=== PATIENT | male | born 1945 | race Caucasian/White ===

== ENCOUNTER → 2016-10-10 | Day surgery (SDC) | payer MEDICARE, OTHER ==
[~2016-10-10] MED LIST: ACETYLCYSTEINE 20% 6,000 MG/30 ML ORAL SOLN VIAL ONE; CALC625 PO; CENTCHW3 PO; CYAN2500 PO; FENO145T2 PO; FLAXOIL4 PO; LACTATED RINGER'S 1000 ML INJ 1,000 ML ONE; NIAC500T34 PO; OMEG100010 PO; PROPOFOL 200 MG/20 ML AMP IV ONE; SAW1000C PO; STERILE WATER FOR INJ 20 ML VIAL ONE; TAMS0.4C67 PO; TRIA37.512 PO
== END | disposition home or self-care (01) ==
LOC: ESDC 08:48
PROVIDERS: ATTEND Internal Medicine Gastroenterology
DX: K22.70 Barrett's esophagus without dysplasia (principal)
CPT/HCPCS: 00740; 43270; J3010; J7120

== ENCOUNTER → 2017-01-02 | Day surgery (SDC) | payer MEDICARE, OTHER ==
[~2017-01-02] MED LIST changes: -PROPOFOL 200 MG/20 ML AMP IV ONE; +PROPOFOL 500 MG/50 ML BTL IV ONE
--- NOTE | 2017-01-02 08:53 | GIPROC ---
[facility] [address] [facility], [address] EGD WITH HALO PROCEDURE REPORT EXAM DATE: 01/02/2017 PATIENT NAME: Barry Ha MR #: [id number] BIRTHDATE: 1945 ORDER #: [id number] ATTENDING: Joi Maldonado MD FOOD PRESERVATION SCIENTIST: STATUS: outpatient INDICATIONS: The patient is a 71 yr old male here for an EGD with HALO90 ablation due to Peres's esophagus , dysphagia PROCEDURE PERFORMED: Esophagoscopy with Halo 90 EGD with biopsy and dilatation with Savary dilators MEDICATIONS: None and Per Anesthesia. TOPICAL ANESTHETIC: none CONSENT: The patient understands the risks and benefits of the procedure and understands that these risks include, but are not limited to: sedation, allergic reaction, infection, perforation and/or bleeding. Alternative means of evaluation and treatment include, among others: physical exam, x-rays, and/or surgical intervention. The patient elects to proceed with this endoscopic procedure. DESCRIPTION OF PROCEDURE: checked for proper function. Hand hygiene and appropriate measures for infection prevention was taken. After the risks, benefits and alternatives of the procedure were thoroughly explained, Informed consent was verified, confirmed and timeout was successfully executed by the treatment team. The EG-2990i ([id number]) endoscope was introduced through the mouth and advanced to the Em -duodenum second portion. The mucosa was examined both on insertion and withdrawal. Retroflexion was performed in the gastric fundus. The area of the Peres's esophagus was mapped. The esophagus was irrigated with 1% N-acetylcysteine (Mucomyst) to clear the mucous layer from the lining of the esophagus and to facilitate energy delivery. The gastroscope was removed and HALO-90 ablation device was attached to the tip of the gastroscope, which was re-introduced into the esophagus under direct visualization. HALO-90 device was directed to the targeted area of Peres's esophagus. With the targeted area in 12 o' clock position with the endoscopic view, radiofrequency energy was applied twice at the same site (300 W and 12 J/cm2). The ablated zone was scrapped with the tip of the HALO-90 device to remove the coagulative debris. The gastroscope was removed and the HALO-90 device was cleaned. The gastroscope was reintroduced with the HALO-90 device and the targeted areas were treated with radiofrequency energy two more times. (Total of four application in one region). The gastroscope was inserted into the stomach, the gastric contents were suctioned and the ablation zone was inspected. Esophagoscopy confirmed complete ablation of all intestinal metaplasia. Rest of the findings are given below. The patient tolerated the procedure well and was sent to Recovery in stable condition. gastritis antrum-biopsy Peres's esophagus distal esophagus-biopsy hiatal hernia spasm distal esophagus -s/p dilatation using Savary dialator 16 ADVERSE EVENTS: There were no complications. IMPRESSIONS: gastritis antrum-biopsy Peres's distal esopphagus -biopsy esophaegal spasm distal esophagus -s/pdilatation using Savary dilator 16 hiatal hernia RECOMMENDATIONS: 1. Avoid aspirin or non-steroidal or anti-inflammatory medications for 7 days. 2. Full liquid diet for 24 hours then advance to soft diet for 7 days. REPEAT EXAM: EGD pending biopsy results , EGD/BARRX 2 month 3.continue ppi 4.fu biopsy 5.fu office Joi Maldonado MD eSigned: Joi Maldonado MD 01/02/2017 8:53 AM cc: Tracy Blood [facility] Flor PATIENT NAME: Barry Ha MR#: [id number]
== END | disposition home or self-care (01) ==
LOC: ESDC 06:44
PROVIDERS: ATTEND Internal Medicine Gastroenterology
DX: K22.70 Barrett's esophagus without dysplasia (principal); K29.70 Gastritis, unspecified, without bleeding; K44.9 Diaphragmatic hernia without obstruction or gangrene; K22.4 Dyskinesia of esophagus
CPT/HCPCS: 00740; 43229; 88305; J3010; J7120

== ENCOUNTER 2017-01-26 10:56 | Emergency (ER) | payer MEDICARE, OTHER ==
[~2017-01-26] VITALS: Ht 180.3 cm; Wt 113.0 kg
[~2017-01-26 10:56] MED LIST changes: -ACETYLCYSTEINE 20% 6,000 MG/30 ML ORAL SOLN VIAL ONE; -LACTATED RINGER'S 1000 ML INJ 1,000 ML ONE; -PROPOFOL 500 MG/50 ML BTL IV ONE; -STERILE WATER FOR INJ 20 ML VIAL ONE
[2017-01-26 10:57] VITALS: BP 149/74; PULSE 70; RESP 18; TEMP 98.4; O2SAT 98
[2017-01-26] MEDS ORDERED: SODIUM CHLORIDE 0.9% FLUSH 10 ML FLUSH IV FLUSH PRN (11:30)
[2017-01-26] MEDS ORDERED: ONDANSETRON HCL 4 MG/2 ML VIAL IVP ONE (11:30)
[2017-01-26] MEDS ORDERED: MORPHINE SULFATE 4 MG/ML INJ IV PUSH ONE ×2 (11:30→13:45)
--- NOTE | 2017-01-26 11:32 | PD ---
HPI Chief Complaint: Abdominal Pain Time Seen by Provider: 11:08 Travel History International Travel<30 days: No Contact w/Intl Traveler<30days: No Traveled to known affect area: No History of Present Illness HPI 71yo M with PMH of nephrolithiasis, duodenol ulcer, barretts esophagitis presents to the ED with c/o right sided abdominal pain since yesterday. States it is intermittent, squeezing type pain, and nonradiating. It feels worst about 20 minuts after eating. +Nausea. Took acetaminophen if minimal relieve. Denies any fever, chest pain, sob, vomiting, dysuria, hematuria, diarrhea, back pain, focal weakness or numbness. Pt had normal bowel movement today. Had normal colonoscopy 6-7 years ago. Follows with GI Dr. Maldonado. [facility] Past Medical History Arthritis: No Asthma: No Autoimmune Disease: No Blood Disorders: No Anxiety: No Depression: No Heart Rhythm Problems: No Cancer: No Cardiovascular Problems: No High Cholesterol: Yes Chemotherapy: No Chest Pain: No Congestive Heart Failure: No COPD: No Cerebrovascular Accident: No Diabetes: No Diminished Hearing: Yes Diverticulitis: Yes Endocrine: No Gastrointestinal Disorders: Yes ("diverticulosis" BARRETTS) GERD: Yes Glaucoma: No Genitourinary: No Headaches: No Hepatitis: No Hiatal Hernia: Yes (X 2) Hypertension: Yes Immune Disorder: No Kidney Stones: Yes (2008 LITHOTRIPSY) Musculoskeletal: No Neurologic: Yes (TRANSVERSE MYELITIS IN 2008) Psychiatric: No Reproductive: No Respiratory: No Immunizations Current: No Migraines: No Myocardial Infarction: No Radiation Therapy: No Renal Failure: No Seizures: No Sickle Cell Disease: No Sleep Apnea: No Thyroid Disease: No Ulcer: Yes (2008) Tetanus Vaccination: Unknown Influenza Vaccination: No Past Surgical History Abdominal Surgery: No AICD: No Appendectomy: No Arteriovenous Shunt: No Body Medical Devices: SHRAPNEL Cardiac Surgery: No Cholecystectomy: No Ear Surgery: No Endocrine Surgery: No Eye Surgery: Yes (1957 LEFT EYE THORN REMOVAL) Genitourinary Surgery: Yes (KIDNEY STONE REMOVAL 2008, 2011) Gynecologic Surgery: No Insulin Pump: No Joint Replacement: No Oral Surgery: No Pacemaker: No Thoracic Surgery: No Other Surgery: Yes (pyelonidal cysts BARRETTS WITH ABLATION) Social History Alcohol Use: No Tobacco Use: Yes ("4 small cigars a day") Substance Use: No Allergies-Medications (Allergen,Severity, Reaction): Coded Allergies: Lisinopril (Verified Allergy, Severe, ANGIOEDEMA, 01/26/17) Penicillin (Verified Allergy, Severe, unknown, 01/26/17) Zocor (Unverified Allergy, Unknown, UNKNOWN, 01/26/17) Reported Meds & Prescriptions Reported Meds & Active Scripts Active Reported Tamsulosin (Tamsulosin HCl) 0.4 Mg Cap 0.8 Mg PO HS Triamterene-Hydrochlorothiazide 37.5-25 Mg Tab 0.5 Tab PO DAILY Fenofibrate 145 Mg Tab 145 Mg PO HS Centrum Silver Men Tablet (Multivit-Min/FA/Lycopen/Lutein) 1 Each Tablet 1 Tab PO DAILY [place] 500 Mg Capsule 1,500 Mg PO HS Niacin 500 Mg Tab 1,000 Mg PO HS Vitamin B12 (Cyanocobalamin (Vitamin B-12)) 2,500 Mcg Tab.chew 1 Tab PO DAILY Super B Complex (Vitamin B Complex Vit C No.4) 150 Mg Tablet 1 Tab PO DAILY [place] Amorphous Fine (Bulk) ([place] (Bulk)) 1 Pow Pow 5 Mg PO DAILY Flax Seed Oil (Flaxseed (Linseed)) 1,000 Mg Cap 845 Mg PO BID Review of Systems Except as stated in HPI: all other systems reviewed are Neg Physical Exam Narrative GENERAL: 71yo M not in distress. SKIN: Focused skin assessment warm/dry. HEAD: Atraumatic. Normocephalic. CARDIOVASCULAR: Regular rate and rhythm. No murmur appreciated. RESPIRATORY: No accessory muscle use. Clear to auscultation. Breath sounds equal bilaterally. GASTROINTESTINAL: Abdomen soft, +Right flank region. No alvarez's sign. No rebound tenderness or guarding. MUSCULOSKELETAL: No obvious deformities. No clubbing. No cyanosis. No edema. NEUROLOGICAL: Awake and alert. No obvious cranial nerve deficits. Motor grossly within normal limits. Normal speech. PSYCHIATRIC: Appropriate mood and affect; insight and judgment normal. Data Data Last Documented VS Vital Signs Date Time Temp Pulse Resp B/P Pulse Ox O2 Delivery O2 Flow Rate FiO2 01/26/17 11:49 96 Room Air 01/26/17 11:39 72 18 146/78 01/26/17 10:57 98.4 Orders Urinalysis - C+S If Indicated (01/26/17 10:58) Complete Blood Count With Diff (01/26/17 11:18) Comprehensive Metabolic Panel (01/26/17 11:18) Lipase (01/26/17 11:18) Prothrombin Time / Inr (Pt) (01/26/17 11:18) Act Partial Throm Time (Ptt) (01/26/17 11:18) Ct Abd/Pel W Iv Contrast(Rout) (01/26/17 11:18) Iv Access Insert/Monitor (01/26/17 11:18) Ecg Monitoring (01/26/17 11:18) Oximetry (01/26/17 11:18) NPO (01/26/17 11:18) Ondansetron Inj (Zofran Inj) (01/26/17 11:30) Sodium Chloride 0.9% Flush (Ns Flush) (01/26/17 11:30) Morphine Inj (Morphine Inj) (01/26/17 11:45) Iohexol 350 Inj (Omnipaque 350 Inj) (01/26/17 12:37) Morphine Inj (Morphine Inj) (01/26/17 13:45) Urine Culture (01/26/17 13:10) Labs Laboratory Tests Test 01/26/17 01/26/17 11:30 13:10 White Blood Count 6.7 TH/MM3 Red Blood Count 5.27 MIL/MM3 Hemoglobin 15.8 GM/DL Hematocrit 47.7 % Mean Corpuscular Volume 90.6 FL Mean Corpuscular Hemoglobin 30.0 PG Mean Corpuscular Hemoglobin 33.1 % Concent Red Cell Distribution Width 14.2 % Platelet Count 406 TH/MM3 Mean Platelet Volume 7.1 FL Neutrophils (%) (Auto) 58.3 % Lymphocytes (%) (Auto) 28.8 % Monocytes (%) (Auto) 8.6 % Eosinophils (%) (Auto) 3.2 % Basophils (%) (Auto) 1.1 % Neutrophils # (Auto) 3.9 TH/MM3 Lymphocytes # (Auto) 1.9 TH/MM3 Monocytes # (Auto) 0.6 TH/MM3 Eosinophils # (Auto) 0.2 TH/MM3 Basophils # (Auto) 0.1 TH/MM3 CBC Comment DIFF FINAL Differential Comment Prothrombin Time 11.9 SEC Prothromb Time International 1.1 RATIO Ratio Activated Partial 27.8 SEC Thromboplast Time Sodium Level 146 MEQ/L Potassium Level 3.4 MEQ/L Chloride Level 110 MEQ/L Carbon Dioxide Level 29.9 MEQ/L Anion Gap 6 MEQ/L Blood Urea Nitrogen 23 MG/DL Creatinine 1.20 MG/DL Estimat Glomerular Filtration 60 ML/MIN Rate Random Glucose 141 MG/DL Calcium Level 9.7 MG/DL Total Bilirubin 0.5 MG/DL Aspartate Amino Transf 22 U/L (AST/SGOT) Alanine Aminotransferase 29 U/L (ALT/SGPT) Alkaline Phosphatase 65 U/L Total Protein 7.2 GM/DL Albumin 3.7 GM/DL Lipase 225 U/L Urine Collection Type CLEAN CATCH Urine Color YELLOW Urine Turbidity MOD Urine pH 6.5 Urine Specific [place] GREATER THAN 1.035 Urine Protein NEG mg/dL Urine Glucose (UA) NEG mg/dL Urine Ketones NEG mg/dL Urine Occult Blood NEG Urine Nitrite NEG Urine Bilirubin NEG Urine Leukocyte Esterase SMALL Urine WBC 25-49 /hpf Urine Squamous Epithelial > 8 /hpf Cells Urine Amorphous Sediment FEW Urine Bacteria MOD /hpf Microscopic Urinalysis Comment CULTURE INDICATED Urine Collection Time 1310 MDM Medical Decision Making Medical Screen Exam Complete: Yes Emergency Medical Condition: Yes Differential Diagnosis Colitis vs. nephrolithiasis vs. pyelonephritis vs. appendicitis vs. cholecystitis vs. peptic ulcer disease Narrative Course 71yo M with right sided abdominal pain. Labs reviewed, no leukocytosis. LFTs normal. Lipase normal. CTa/p showed no acute abnormality to explain the patient's pain. Colonic diverticulosis. Stable hepatic and renal cysts. 4mm nonobstructing left renal stone. watermaster stable nodular area of differing enhancement within right lob of liver likely hemangioma. Pt reevaluated at bedside and pain has improved but starting to return. No longer nauseous. Will give another dose of pain medication. UA: WBC 25-49. Moderate bacteria. Culture indicated. Pt reevaluated at bedside, pain resolved. Pt is tolerating PO so will give PO antibiotics. Pt given first dose of bactrim. Diagnosis Primary Impression: UTI (urinary tract infection) Qualified Code: N39.0 - Urinary tract infection without hematuria, site unspecified Patient Instructions: General Instructions Departure Forms: Tests/Procedures Additional Instructions: Please follow up with GI as outpatient. Med/Other Pt SpecificInfo: Prescription(s) given Scripts Sulfamethoxazole-Trimethoprim (Bactrim DS)800-160 Mg Tab1 Tab PO BID #14 TAB Ref 0 Prov:Jaylene Banks DO 01/26/17 Disposition: 01 DISCHARGE HOME Condition: Stable Jaylene Banks DO Jan 26, 2017 11:32
[2017-01-26 11:33] LABS: AUTOMATED NEUTROPHIL # 3.9 TH/MM3 (1.8-7.7); BASOPHIL # 0.1 TH/MM3 (0-0.2); BASOPHIL % 1.1 % (0.0-2.0); EOSINOPHIL # 0.2 TH/MM3 (0-0.4); EOSINOPHIL % 3.2 % (0.0-4.0); HEMATOCRIT 47.7 % (39.0-51.0); HEMO FLAGS DIFF FINAL; LYMPH % 28.8 % (9.0-44.0); LYMPHOCYTE # 1.9 TH/MM3 (1.0-4.8); MEAN CELL VOLUME 90.6 FL (80.0-100.0); MEAN CORPUSCULAR HGB CONC 33.1 % (32.0-36.0); MONO % 8.6 % (0.0-8.0); NEUT % 58.3 % (16.0-70.0); PLATELET COUNT 406 TH/MM3 (150-450); RED BLOOD COUNT 5.27 MIL/MM3 (4.50-5.90); RED CELL DISTRIBUTION WIDTH 14.2 % (11.6-17.2); WHITE BLOOD COUNT 6.7 TH/MM3 (4.0-11.0)
[2017-01-26 11:39] VITALS: BP 146/78; PULSE 72; RESP 18; O2SAT 97
[2017-01-26 11:41] LABS: CHLORIDE 110 MEQ/L (98-107); POTASSIUM 3.4 MEQ/L (3.5-5.1); SODIUM (NA) 146 MEQ/L (136-145)
[2017-01-26 11:44] LABS: ANION GAP 6 MEQ/L (5-15); BICARBONATE 29.9 MEQ/L (21.0-32.0); BLOOD UREA NITROGEN 23 MG/DL (7-18)
[2017-01-26 11:45] LABS: APTT (PATIENT) 27.8 SEC (24.3-30.1); INTERNATIONAL NORMALIZED RATIO 1.1 RATIO; PROTHROMBIN TIME - PATIENT 11.9 SEC (9.8-11.6)
[2017-01-26] MEDS ORDERED: MORPHINE SULFATE 8 MG/ML INJ IV PUSH ONE ×2 (11:45→14:15)
[2017-01-26 11:47] LABS: ALT (GPT) 29 U/L (12-78); AST (GOT) 22 U/L (15-37); GLOMERULAR FILTRATION RATE 60 ML/MIN (>89)
[2017-01-26 11:49] VITALS: O2SAT 96
[2017-01-26 11:49] LABS: TOTAL BILIRUBIN ADULT 0.5 MG/DL (0.2-1.0)
[2017-01-26 11:50] LABS: ALKALINE PHOSPHATASE 65 U/L (45-117)
[2017-01-26] MEDS ORDERED: NIAC500T5 PO (11:57)
[2017-01-26] MEDS ORDERED: TRIA37.5 PO (11:57)
[2017-01-26] MEDS ORDERED: MULT1TAB64 PO (11:57)
[2017-01-26] MEDS ORDERED: BORO1POW PO (11:57)
[2017-01-26] MEDS ORDERED: CYAN25005 PO (11:57)
[2017-01-26] MEDS ORDERED: VITA150T PO (11:57)
[2017-01-26] MEDS ORDERED: SAW500CA PO (11:57)
[2017-01-26] MEDS ORDERED: FENO145T2 PO (11:57)
[2017-01-26] MEDS ORDERED: FLAX100013 PO (11:57)
[2017-01-26] MEDS ORDERED: TAMS0.4C4 PO (11:57)
[2017-01-26] MEDS ORDERED: IOHEXOL 350 MG/ML 10 ML VIAL (for RAD DIAG) IV ONE (12:37)
--- NOTE | 2017-01-26 12:54 | RADRPT ---
EXAM DATE/TIME: 01/26/2017 12:10 [facility] COMPARISON: CT ABDOMEN & PELVIS W CONTRAST, May 02, 2009, 13:17. CT ABDOMEN & PELVIS W/O CONTRAST, June 03, 2011, 6:14. CT ABDOMEN & PELVIS W CONTRAST, October 15, 2014, 4:39. INDICATIONS : Right side abdominal pain, nausea. IV CONTRAST: 73 cc Omnipaque 350 (iohexol) IV ORAL CONTRAST: No oral contrast ingested. RADIATION DOSE: 21.21 CTDIvol (mGy) MEDICAL HISTORY : Diverticulosis. Ulcers. Gastroesophageal reflux disease.Peres's esophagus, renal stones, hypertensi on. SURGICAL HISTORY : Lithotripsy. ENCOUNTER: Initial ACUITY: 3 days PAIN SCALE: 7/10 LOCATION: Right lower quadrant TECHNIQUE: Volumetric scanning of the abdomen and pelvis was performed. Using automated exposure control and ad justment of the mA and/or kV according to patient size, radiation dose was kept as low as reasonably achievable to obtain optimal diagnostic quality images. DICOM format image data is available electro nically for review and comparison. FINDINGS: LOWER LUNGS: The visualized lower lungs are clear. LIVER: A few small scattered hepatic cysts are seen with a dominant cyst within the right lobe measuring 4.1 cm. Hounsfield units are 9. Within the right lobe liver near the dome there is a focal nodular area of early enhancement measuring 16 x 13 mm. This is unchanged from the prior studies. No worrisome les ions. No ductal dilatation. The gallbladder is unremarkable. SPLEEN: Normal size without lesion. PANCREAS: Within normal limits. KIDNEYS: Small low density cortical lesions are seen bilaterally. The Hounsfield units are equal to that of wa ter involving all lesions. The largest involves the upper pole the left kidney measuring 2.4 cm. Thes e are consistent with cysts. There is a 4 mm nonobstructing stone involving the left lower pole. ADRENAL GLANDS: Within normal limits. VASCULAR: There is no aortic aneurysm. BOWEL/MESENTERY: The stomach, small bowel, and colon demonstrate no acute abnormality. There is no free intraperitone al air or fluid. Multiple colonic diverticuli without acute inflammation. Appendix is normal by CT cr iteria. ABDOMINAL WALL: Within normal limits. RETROPERITONEUM: There is no lymphadenopathy. BLADDER: No wall thickening or mass. REPRODUCTIVE: Within normal limits. INGUINAL: There is no lymphadenopathy or hernia. MUSCULOSKELETAL: Within normal limits for patient age. CONCLUSION: 1. No acute abnormality to explain the patient's pain. 2. Colonic diverticulosis. 3. Stable hepatic and renal cysts. 4. 4 mm nonobstructing left renal stone. 5. Long-term stable nodular area of differing enhancement within the right lobe of the liver likely r elated to a hemangioma. Guido Preston Jr., MD on January 26, 2017 at 12:40 Board Certified Radiologist. This report was verified electronically.
[2017-01-26 13:23] LABS: BLOOD, URINE NEG (NEG); GLUCOSE,URINE NEG (NEG); KETONE, URINE NEG (NEG); NITRITE,URINE NEG (NEG); PH, URINE 6.5 (5.0-8.5)
[2017-01-26 13:29] LABS: METHOD OF COLLECTION CLEAN CATCH; URINE COLOR YELLOW (YELLW/STRAW)
[2017-01-26 13:32] LABS: BACTERIA, URINE MOD /hpf; CULTURE IF INDICATED CULTURE INDICATED; SQUAMOUS EPITHELIAL CELL URINE > 8 /hpf (0-5)
[2017-01-26 13:34] LABS: COMMENT (UR) CULTURE INDICATED; COMMENT2 (UR) CULTURE INDICATED
[2017-01-26] MEDS ORDERED: BACT800T5 PO (14:06)
[2017-01-26] MEDS ORDERED: SULFAMETHOXAZOLE-TRIMETHOPRIM DS 800-160 MG TAB PO ONE (14:15)
[2017-01-26 14:21] VITALS: BP 141/73; PULSE 58; RESP 18; O2SAT 95
== END 2017-01-26 14:55 | disposition home or self-care (01) ==
LOC: PHED 10:56
DX: N39.0 Urinary tract infection, site not specified (principal); B95.4 Other streptococcus as the cause of diseases classified elsewhere
CPT/HCPCS: 74177; 80053; 81001; 83690; 85025; 85610; 85730; 87086; 96374; 96375; 96376; 99285; J2270; J2405; Q9967

== ENCOUNTER → 2017-03-01 | Day surgery (SDC) | payer MEDICARE, OTHER ==
[~2017-03-01] MED LIST changes: +ACETYLCYSTEINE 20% 6,000 MG/30 ML ORAL SOLN VIAL ONE; +BACT800T5 PO; +BORO1POW PO; -CALC625 PO; -CENTCHW3 PO; -CYAN2500 PO; +CYAN25005 PO; +FLAX100013 PO; -FLAXOIL4 PO; +LACTATED RINGER'S 1000 ML INJ 1,000 ML ONE; +MULT1TAB64 PO; -NIAC500T34 PO; +NIAC500T5 PO; -OMEG100010 PO; +PROPOFOL 200 MG/20 ML AMP IV ONE; -SAW1000C PO; +SAW500CA PO; +STERILE WATER FOR INJECTION 20 ML VIAL ONE; +TAMS0.4C4 PO; -TAMS0.4C67 PO; +TRIA37.5 PO; -TRIA37.512 PO; +VITA150T PO
--- NOTE | 2017-03-01 13:10 | GIPROC ---
[facility] [address] [facility], [address] EGD WITH HALO PROCEDURE REPORT EXAM DATE: 03/01/2017 PATIENT NAME: Barry Ha MR #: [id number] BIRTHDATE: 1945 ORDER #: [id number] ATTENDING: Joi Maldonado MD BOX SEALING MACHINE FEEDER: Trudy Benton RN STATUS: outpatient INDICATIONS: The patient is a 71 yr old male here for an EGD with HALO90 ablation due to history of Peres's PROCEDURE PERFORMED: esophagoscopy with BARRX MEDICATIONS: None and Per Anesthesia. TOPICAL ANESTHETIC: none CONSENT: The patient understands the risks and benefits of the procedure and understands that these risks include, but are not limited to: sedation, allergic reaction, infection, perforation and/or bleeding. Alternative means of evaluation and treatment include, among others: physical exam, x-rays, and/or surgical intervention. The patient elects to proceed with this endoscopic procedure. DESCRIPTION OF PROCEDURE: checked for proper function. Hand hygiene and appropriate measures for infection prevention was taken. After the risks, benefits and alternatives of the procedure were thoroughly explained, Informed consent was verified, confirmed and timeout was successfully executed by the treatment team. The EG-2990i ([id number]) endoscope was introduced through the mouth and advanced to the gastroesophageal junction. The mucosa was examined both on insertion and withdrawal. Retroflexion was performed in the gastric fundus. The area of the Peres's esophagus was mapped. The esophagus was irrigated with 1% N-acetylcysteine (Mucomyst) to clear the mucous layer from the lining of the esophagus and to facilitate energy delivery. The gastroscope was removed and HALO-90 ablation device was attached to the tip of the gastroscope, which was re-introduced into the esophagus under direct visualization. HALO-90 device was directed to the targeted area of Peres's esophagus. With the targeted area in 12 o' clock position with the endoscopic view, radiofrequency energy was applied twice at the same site (300 W and 12 J/cm2). The ablated zone was scrapped with the tip of the HALO-90 device to remove the coagulative debris. The gastroscope was removed and the HALO-90 device was cleaned. The gastroscope was reintroduced with the HALO-90 device and the targeted areas were treated with radiofrequency energy two more times. (Total of four application in one region). The gastroscope was inserted into the stomach, the gastric contents were suctioned and the ablation zone was inspected. Esophagoscopy confirmed complete ablation of all intestinal metaplasia. Rest of the findings are given below. The patient tolerated the procedure well and was sent to Recovery in stable condition. Peres's esophagus identified. ADVERSE EVENTS: There were no complications. IMPRESSIONS: Peres's esophagus identified s/p BARRX treatment RECOMMENDATIONS: 1. Anti-reflux regimen 2. Continue PPI REPEAT EXAM: Return 3 months EGD Joi Maldonado MD eSigned: Joi Maldonado MD 03/01/2017 1:09 PM cc: Guilherme Blood [facility] Flor Murphy M.D. PATIENT NAME: Barry Ha MR#: [id number]
== END | disposition home or self-care (01) ==
LOC: ESDC 10:17
PROVIDERS: ATTEND Internal Medicine Gastroenterology
DX: K22.70 Barrett's esophagus without dysplasia (principal)
CPT/HCPCS: 00740; 43229; J3010; J7120